=== PATIENT | female | born 1940 | race Caucasian/White ===

== ENCOUNTER 2017-02-03 10:05 | Emergency (ER) | payer OTHER ==
[~2017-02-03] VITALS: Ht 152.4 cm; Wt 99.0 kg
[~2017-02-03 10:05] MED LIST: ATEN-100 PO; BUDE.5I INH; CITA10TA4 PO; ESTR2TAB PO; HCTZ50 PO; MELO7.5T PO; METH4TAB6 PO; OMEP20TA PO; PRED20 PO; SYNT25TA PO; VENTAER INH; VESI10TA4 PO
[2017-02-03 10:13] VITALS: BP 164/88; PULSE 81; RESP 16; TEMP 97.8; O2SAT 95
[2017-02-03] MEDS ORDERED: BUDE.5I NEB (10:25)
[2017-02-03] MEDS ORDERED: LEVO25TA4 PO (10:25)
[2017-02-03] MEDS ORDERED: ESTR2TAB4 PO (10:25)
[2017-02-03] MEDS ORDERED: ATEN25TA PO (10:25)
[2017-02-03] MEDS ORDERED: CITA10TA4 PO (10:25)
[2017-02-03] MEDS ORDERED: ASPI1TAB69 PO (10:25)
[2017-02-03] MEDS ORDERED: ATOR40TA16 PO (10:25)
[2017-02-03] MEDS ORDERED: VESI10TA PO (10:25)
[2017-02-03] MEDS ORDERED: OMEP20TA PO (10:25)
[2017-02-03] MEDS ORDERED: VENTAER INH (10:25)
[2017-02-03] MEDS ORDERED: ACETAMINOPHEN/HYDROcodone 325 MG/5 MG TAB PO ONE (10:30)
[2017-02-03] MEDS ORDERED: HYDR25TA5 PO (10:31)
--- NOTE | 2017-02-03 10:38 | PD ---
HPI Chief Complaint: Injury Time Seen by Provider: 10:18 Travel History International Travel<30 days: No Contact w/Intl Traveler<30days: No Traveled to known affect area: No History of Present Illness HPI 76-year-old who presents emergent department complaining of right wrist pain. She reports that she was walking when she tripped and fell on the dirt. She landed with her right wrist hyperflexed into the ground. She has pain on the radial side of the hand, the base of the thumb, and on the radial side of the wrist. She has pain with range of motion, especially the thumb. She otherwise had been feeling generally well and healthy. She denies any other new or worsening symptoms. History Past Medical History Narrative Medical Sleep apnea COPD Osteoarthritis History of diverticulitis Menopausal: Yes Social History Alcohol Use: Yes (RARELY) Tobacco Use: No Allergies-Medications (Allergen,Severity, Reaction): Coded Allergies: No Known Allergies (Unverified , 02/03/17) Reported Meds & Prescriptions Reported Meds & Active Scripts Active Reported Hydrochlorothiazide 25 Mg Tab 25 Mg PO DAILY Estrace (Estradiol) 2 Mg Tab 2 Mg PO DAILY Citalopram (Citalopram Hydrobromide) 10 Mg Tab 10 Mg PO DAILY Vesicare (Solifenacin) 10 Mg Tab 10 Mg PO DAILY Pulmicort Respules (Budesonide) 0.5 Mg/2 Ml Neb 0.5 Mg NEB Q12HR NEB Omeprazole 20 Mg Tab 20 Mg PO DAILY Levothyroxine (Levothyroxine Sodium) 25 Mcg Tab 25 Mcg PO DAILY Aspirin 81 Mg Tabdr 81 Mg PO DAILY Atorvastatin (Atorvastatin Calcium) 40 Mg Tab 40 Mg PO HS Ventolin Hfa 18 GM Inh (Albuterol Sulfate) 90 Mcg/Act Aer 2 Puff INH Q4-6H PRN Atenolol 25 Mg Tab 25 Mg PO DAILY Review of Systems Except as stated in HPI: all other systems reviewed are Neg Physical Exam Narrative GENERAL: Well-appearing 76-year-old woman, no acute distress. SKIN: Warm and dry. CARDIOVASCULAR: Warm and well perfused. RESPIRATORY: Normal rate and effort. MUSCULOSKELETAL: Focus examination the right upper extremity reveals grossly normal appearance the right wrist little bit of swelling on the dorsum of the wrist. Is no ecchymosis or bruising. There is tenderness at the base of the thumb, at the snuffbox, and over the radial styloid. There is pain with range of motion of the wrist. NEUROLOGICAL: Awake and alert. No gross deficits. Data Data Last Documented VS Vital Signs Date Time Temp Pulse Resp B/P Pulse Ox O2 Delivery O2 Flow Rate FiO2 02/03/17 10:13 97.8 81 16 164/88 95 Orders Wrist, Complete ([id number]) (02/03/17 ) Acetamin-Hydrocod 325-5 Mg ([place] 5-325 (02/03/17 10:30) MDM Medical Decision Making Medical Screen Exam Complete: Yes Emergency Medical Condition: Yes Interpretation(s) X-ray right wrist: Acute transverse nondisplaced fracture of the distal radial metaphysis. Differential Diagnosis Wrist fracture, scaphoid injury, strain or sprain, other Narrative Course Medical decision-making 76 year-old man with right wrist injury after a fall with unusual mechanism of forced hyperflexion when she fell. Could be a risk for unusual injuries, such as carpometacarpal dislocation, scaphoid injury. We'll check x-ray, reassess. FINAL: X-ray confirms acute transverse fracture through the distal radius. Patient has seen Dr. Dudley in the past. We'll refer her for follow-up with Dr. Pacheco, pain control. Diagnosis Primary Impression: Right radial fracture Qualified Code: S52.501A - Closed fracture of distal end of right radius, unspecified fracture morphology, initial encounter Referrals: Yves Esteban MD 1 week Additional Instructions: Use Lortab as needed for pain. Keep splint clean and dry. Use sling when you're walking around her up on your feet. Follow-up with Dr. Esteban in the next one to 2 weeks. Med/Other Pt SpecificInfo: Prescription(s) given Scripts Hydrocodone-Acetaminophen (Lortab)5-325 Mg Tab1-2 Tab PO Q6H PRN (PAIN) #20 TAB Prov:Gurwinder Llamas MD 02/03/17 Disposition: 01 DISCHARGE HOME Condition: Stable Gurwinder Llamas MD Feb 03, 2017 10:38
--- NOTE | 2017-02-03 10:57 | RADHPO ---
EXAM DATE/TIME: 02/03/2017 10:29 [facility] COMPARISON: No previous studies available for comparison. INDICATIONS : Right wrist pain; fall today. MEDICAL HISTORY : Arthritis. Hypertension Chronic obstructive pulmonary disease. Thyriod disease. Diverticulitis. H iatial hernia. SURGICAL HISTORY : Bunionectomy. Bilateral meniscus repair. ENCOUNTER: Initial ACUITY: 1 day PAIN SCORE: 9/10 LOCATION: Right wrist. FINDINGS: 3 views of the right wrist demonstrate a transverse nondisplaced fracture of the distal radial metaph ysis. The bones are undermineralized. There is mild degenerative change at the distal radioulnar join t. No carpal bone injury is identified. No soft tissue abnormality or radiopaque foreign body is seen . CONCLUSION: There is an acute transverse nondisplaced fracture of the distal radial metaphysis. Joshua Wilson MD on February 03, 2017 at 10:54 Board Certified Radiologist. This report was verified electronically.
[2017-02-03] MEDS ORDERED: HYDR-3533 PO (11:01)
== END 2017-02-03 11:15 | disposition home or self-care (01) ==
LOC: PHEFT 10:05
DX: S52.501A Unspecified fracture of the lower end of right radius, initial encounter for closed fracture (principal); J44.9 Chronic obstructive pulmonary disease, unspecified; G47.30 Sleep apnea, unspecified; M19.90 Unspecified osteoarthritis, unspecified site; W18.09XA Striking against other object with subsequent fall, initial encounter; Y93.01 Activity, walking, marching and hiking; Y92.9 Unspecified place or not applicable; Y99.8 Other external cause status
CPT/HCPCS: 29125; 73110